=== PATIENT | female | born 2000 | race Caucasian/White ===

== ENCOUNTER → 2021-08-16 | Outpatient (CLI) | payer OTHER, BC ==
[2021-08-16 16:34] LABS: BASO % 0 % (0-3); EOS # 0.2 x10^3/uL (0.0-0.7); EOS % 2 % (0-3); HEMATOCRIT 37.2 % (36.0-47.0); HEMOGLOBIN 12.1 g/dL (12.0-15.5); LYMPH # 2.1 x10^3/uL (1.0-4.8); LYMPH % 23 % (24-48); MEAN CORPUSCULAR HEMOGLOBIN 27 pg (25-35); MEAN CORPUSCULAR HGB CONC 33 g/dL (31-37); MEAN CORPUSCULAR VOLUME 82 fL (79-100); MONO # 0.4 x10^3/uL (0.0-1.1); MONO % 4 % (0-9); NEUT # 6.4 x10^3uL (1.8-7.7); NEUT % 70 % (31-73); PLATELET COUNT 288 x10^3/uL (140-400); RED BLOOD COUNT 4.54 x10^6/uL (3.50-5.40); RED CELL DISTRIBUTION WIDTH 14.2 % (11.5-14.5)
[2021-08-17 14:41] LABS: FREE T4 0.97 ng/dL (0.76-1.46); THYROID STIM HORMONE (TSH) 1.428 uIU/mL (0.358-3.740)
[2021-08-18 19:08] LABS: RUBELLA IGG ANTIBODY 1.57 index (Immune >0.99)
== END ==
LOC: LAB 15:16
PROVIDERS: ATTEND Obstetrics & Gynecology
DX: Z34.91 Encounter for supervision of normal pregnancy, unspecified, first trimester (principal); Z3A.00 Weeks of gestation of pregnancy not specified
CPT/HCPCS: 36415; 81220; 84439; 84443; 85025; 85660; 86592; 86703; 86762; 86787; 86803; 86850; 86900; 86901; 87340

== ENCOUNTER → 2021-09-12 | Outpatient (CLI) | payer OTHER, BC ==
--- NOTE | 2021-09-12 13:54 | RAD ---
OB ultrasound less than 14 weeks 09/12/2021 CLINICAL HISTORY: First trimester . (Z34.91). TECHNIQUE: Using the distended urinary bladder as a sonographic window, a real-time ultrasound examin ation of pelvis was performed. Multiple images were obtained. FINDINGS: A gestational sac is seen within the endometrial canal of the body/fundus of the uterus. Wi thin this gestational sac a pole is seen. The CRL the pole measures 4.19 cm. This corresp onds to an estimated gestational age by ultrasound of 11 weeks 0 days plus or minus a standard deviat ion of 7 days. cardiac activity is seen with a heart rate of 169 beats per minutes. The p place nta appears to be developing posteriorly. The amniotic fluid volume is within normal limits. The uter us is otherwise within normal limits. Both ovaries are within normal limits in size and echogenicity. The right ovary measures 2.5 x 2.7 x 1.7 cm in size. Left ovary measures 2.9 x 1.9 x 1.7 cm in size. Normal color-flow and pulse Doppler i maging to both ovaries is seen. No adnexal mass is noted. No free fluid is seen. IMPRESSION: Single living IUP with an estimated gestational age by ultrasound of 11 weeks 0 days plus or minus a standard deviation of 7 days. The estimated date of delivery by ultrasound is 04/03/2022. Electronically signed by: Aaron Ramirez MD (09/12/2021 1:52 PM) [id number]
== END ==
LOC: EDUNIT# 08-25 10:00 → US 12:34
PROVIDERS: ATTEND Obstetrics & Gynecology
DX: Z34.91 Encounter for supervision of normal pregnancy, unspecified, first trimester (principal); Z3A.11 11 weeks gestation of pregnancy
CPT/HCPCS: 76801

== ENCOUNTER → 2021-11-17 | Outpatient (CLI) | payer OTHER, BC ==
--- NOTE | 2021-11-17 11:38 | RAD ---
EXAM: OB ULTRASOUND, > 14 WEEKS HISTORY: anatomy survey. COMPARISON: 09/12/2021. TECHNIQUE: Multiple grayscale images, color Doppler, and M-mode images of the uterus are obtained. FINDINGS: There is a single intrauterine gestation in cephalic presentation. The placenta is posterior in locat ion without evidence of placenta previa. The amount of amniotic fluid appears appropriate. Amniotic fluid index is 16.1 cm. Cervical length is 3.6 cm. Biometrical data: BPD = 4.8 cm for 20 weeks 3 days. HC = 17.4 cm for 19 weeks 6 days. AC = 14.2 cm for 19 weeks 4 days. FL = 3.3 cm for 20 weeks 1 days. HC/AC ratio = 1.2. Overall, the estimated sonographic gestational age is 20 weeks and 0 days for an estimated date of de livery of 04/06/2022. The estimated date of delivery provided by the last menstrual period is 04/03/2022 . Estimated weight is 319 grams. A 4 chamber heart is identified with positive cardiac activity. The estimated heart rate is 144 beats per minute. Bilateral upper and lower extremities are identified. There is a three-vessel cord with cord insertion visualized. stomach and urinary bladder are identified. Both kidneys are seen. The spine and brain are unremarkable. No obvious anatomic abnormalities are identified. The maternal adnexal regions are unremarkable. IMPRESSION: 1. Single intrauterine fetus with normal heart rate and gestational age based on ultrasound measureme nts of 20 weeks and 0 days. 2. Unremarkable anatomy survey. Electronically signed by: Lorene Palumbo MD (11/17/2021 11:36 AM) [id number]
== END ==
LOC: US 10:43
PROVIDERS: ATTEND Obstetrics & Gynecology
DX: Z34.92 Encounter for supervision of normal pregnancy, unspecified, second trimester (principal); Z3A.20 20 weeks gestation of pregnancy
CPT/HCPCS: 76805